=== PATIENT | male | born 1980 | race Caucasian/White ===

== ENCOUNTER 2024-02-17 14:10 | Emergency (ER) | payer OTHER, SELFPAY ==
--- NOTE | 2024-02-17 14:32 | MHC.EDTECH ---
CALLED ME OFFICE PER DR VILLASEÑOR. SPOKE TO CLIFF URENA 9391.
--- NOTE | 2024-02-17 14:35 | ED_ITS ---
HPI - CPR General Chief Complaint: Cardiac Arrest/CPR Stated Complaint: CA Time Seen by Provider: 02/17/24 14:23 Source: EMS Mode of arrival: EMS Limitations: other ( cardiac arrest) History of Present Illness ED Provider: DR. Santos HPI narrative: 43-year-old male not well known to our facility came in by ambulance after witnessed arrest. on EMS arrival patient was apneic, no pulse, fine V-tach that patient received 1 time D fibrillation, patient also received 1 mg epinephrine x6 at the field and CPR was started and Jimmy's airway was established and patient was transferred to our ED. On arrival patient is unresponsive, CPR in progress, initial rhythm at the ED asystole with no pulse, patient was intubated using glide scope, CPR was in progress, patient received 1 mg of epinephrine x4, bicarb 2 amp, BS was 153. was announced at 14:30. No family or contacts at this point, patient has no records in our hospital. accepted by [facility] . Related Data Allergies Allergy/AdvReac Type Severity Reaction Status Date / Time Unable to Assess Allergy Verified 02/17/24 14:42 Review of Systems Review of Systems: all other systems are reviewed and are negative Constitutional: Reports as per HPI and Reports no additional constitutional complaints Eyes: Reports as per HPI and Reports no additional eye complaints Reports system reviewed and no additional complaints, except as documented Cardiovascular: Reports as per HPI and Reports no additional cardiovascular complaints Respiratory: Reports as per HPI and Reports no additional respiratory complaints Gastrointestinal: Reports as per HPI and Reports no additional gastrointestinal complaints Genitourinary: Reports no additional female genitourinary complaints Musculoskeletal: Reports no additional musculoskeletal complaints Skin/Breast: Reports system reviewed and no additional complaints, except as docu Psychiatric: Reports no additional psychiatric complaints Endocrine: Reports no additional endocrine complaints Hematologic/Lymphatic: Reports no additional hematologic/lymphatic complaints Allergic/Immunologic: Reports no additional allergic/immunologic complaints Reports system reviewed and no additional complaints, except as documented and Reports Abnormal speech present [facility] Social History Social History Advance Directives: No Advance Directives Information Provided: No Physical Exam Vital Signs: Vital Signs: BMI result Body Mass Index 36.0 pulse 0, respiratory rate 0, BP unobtainable. general: Unresponsive. HEENT: pupil is 3 mm fixed and dilated, no eye movement, No facial trauma, no neck trauma. Chest: No air movement, patient is apneic. Heart: No heart sounds. Abdomen: Soft, no distention, no evidence of trauma. Extremity: No trauma, no deformity. Neuro exam: Patient is unresponsive GCS of 3. Course Reevaluation(s) Reevaluation #1: Cardiac arrest. Unsuccessful resuscitation. Case was discussed with me and was accepted with by Sophia Mcdermott Time: 14:58 Medical Decision Making Differential Diagnosis Differential Diagnoses: The differential diagnosis associated with the presentation includes ( cardiac arrest, overdose.) Admission/Observation Consideration of admission/observation: Escalation of care including admission/observation considered Discharge Plan Discharge Clinical Impression: Cardiac arrest Patient Disposition: Date/Time: 02/17/24 14:30
[2024-02-17 14:42] VITALS: BMI 36.0
--- OUTSIDE RECORDS SUMMARY | 2024-02-17 14:55 | XMS_ITS | Continuity of Care Document ---
Author Organization [facility] Address [address] [place] [address] [address] [place] [address]- Care Team Providers Care Software Sales Manager Name Role Phone Marvin FLORES, Andrez Lawton Primary Care Physician Encounter [facility] Date(s): 06/08/19 - 10/06/[address] [place] [address]- [facility] Attending Physician: Cheikh FLORES, Cheryle Lawton Allergies, Adverse Reactions, Alerts Substance Reaction Severity Status penicillin Active Immunizations Not Given Vaccine Date Status Refusal Reason pneumococcal 23-valent vaccine 04/07/19 Not Given Parent Or Guardian Refuses Social History Social History Type Response Smoking Status Never (less than 100 in lifetime) entered on: 05/07/19 Sex
--- OUTSIDE RECORDS SUMMARY | 2024-02-17 14:55 | XMS_ITS | Continuity of Care Document ---
Author Organization [facility] ter Address [address] [place] [address]- Care Team Providers Care Mirror Inspector Name Role Phone Andrez Wong MD Primary Care Physician [phone] [place] [facility] [id number] Date(s): 10/10/22 - 10/10/[address] [address]- Discharge Disposition: A-D/C Home Attending Physician: Eryn Mccoy DO Admitting Physician: Eryn Mccoy DO Referring Physician: Not on Staff, Referring MD Allergies, Adverse Reactions, Alerts Substance Reaction Severity Status penicillin Active Immunizations Not Given Vaccine Date Status Refusal Reason pneumococcal 23-valent vaccine 04/07/19 Not Given Parent Or Guardian Refuses Medications cyclobenzaprine 5 mg oral tablet 1 tablet = 5 mg, By Mouth, 3 times a day, for 5 days, # 15 tablet, 0 Refills, Acute 10/15/22 10:17:00 EDT, 10/10/22 10:17:00 EDT, [id number], Partial fill upon patient request if theprescription is for a schedule II opioid drug., 176... Start Date: 10/10/22 Stop Date: 10/15/22 Status: Ordered ibuprofen 600 mg oral tablet 600 mg, 1, tablet, By Mouth, 4 times a day, PRN, for 5 days, # 20 tablet, Refills 0, Tot. Refills 0, Acute 10/15/22 10:17:00 EDT, for pain, 10/10/22 10:17:00 EDT, Route to Pharmacy Electronically, [id number], Partial fill upon patient... Start Date: 10/10/22 Stop Date: 10/15/22 Status: Ordered lidocaine 5% topical film 1 patch, Topically, Daily, PRN Pain , Moderate, # 5 patch, 0 Refills, Maintenance, 10/10/22 10:17:00 EDT, [facility] #[id number], Partial fill upon patient request if the prescription is for a schedule II opioid drug., 1 patch Topically Daily,x5... Start Date: 10/10/22 Stop Date: 10/15/22 Status: Ordered oxyCODONE 5 mg oral tablet 5 mg, Tablet, By Mouth, Every 6 hours, PRN for Pain , Severe, STAT, 10/10/22 6:19:00 EDT Start Date: 10/10/22 Stop Date: 10/10/22 Status: Discontinued Problem List Condition Confirmation Course Effective Dates Status Health St atus Informant Severe obesity Confirmed Active Results Radiology Reports * Exam Date Time Procedure Performing Provider Status 10/10/22 6:37 AM XR Hip w/Pelvis 2-3 View Left Eleazar Ariza; Auth (Verified) Notes: (XR Hip w/Pelvis 2-3 View Left) Reason For Exam: Pain RESULT: XR Hip w/Pelvis 2-3 View Left XR Hip w/Pelvis 2-3 View Left Hx of Present Illness: pt complains of left hip pain for 6 weeks, was seen agt UC and given pain meds but pain worse; Reason: Pain; Clinical Question(s): Other: COMPARISON: No relevant FINDINGS: There is no fracture or dislocation. The femoral heads are normally aligned with the acetabula. Thesoft tissues are unremarkable. IMPRESSION: There is no acute osseous abnormality. WSN: [id number] Ordering Physician: Rebeca Palacios Dictated By: Isela Espinoza MD Dictated Date/Time: 10/10/22 8:56 am Reviewed By: Isela Espinoza MD Signed By: Isela Espinoza MD Signed Date/Time: 10/10/22 8:56 am Transcribed By: GEORGIE Transcribed Date/Time: 10/10/22 8:55 am * Exam Date Time Procedure Performing Provider Status 10/10/22 7:[address] Lumbar Spine W/O Contrast Richard Youngblood; Auth (Verified) Notes: (CT Lumbar Spine W/O Contrast) Reason For Exam: Spine fracture, lumbar;Other: RESULT: CT Lumbar Spine W/O Contrast CT Lumbar Spine W/O Contrast Hx of Present Illness: pt complains of left hip pain for 6 weeks, was seen agt and given pain meds but pain worse; Reason: Other:; Spine fracture, lumbar; Clinical Question(s): Fracture Dislocation; Severe radicular like pain in the hip; Order Comment: CLINICAL QUESTION: Fracture/Dislocation TECHNIQUE: Thin section axial images were acquired through the lumbar spine. Bone and soft tissue algorithms were reconstructed along with coronal and sagittal reformats. Weight-based protocol using automatic tube modulation was used to optimize exposure parameters. CTDIvol Body: 44.70 mGy, DLP Body: 1254 mGy*cm. COMPARISON: None FINDINGS: Grooming Assistant View Findings, Lines and Tubes: None. Spine: No fractures or bone lesion. Mild endplate and intervertebral disc degenerative changes with minimal posterior disc bulge at L2-L3. Soft tissues: No acute abnormality in the paravertebral soft tissues. Visualized aorta and kidneys appear unremarkable. IMPRESSION: No acute fracture of the lumbar spine. WSN: [id number] Ordering Physician: Rebeca Palacios Dictated By: Nargis Hammond MD Dictated Date/Time: 10/10/22 9:00 am Reviewed By: Nargis Hammond MD Signed By: Nargis Hammond MD Signed Date/Time: 10/10/22 9:00 am Transcribed By: GEORGIE Transcribed Date/Time: 10/10/22 8:38 am * Exam Date Time Procedure Performing Provider Status 10/10/22 7:[address] Ext Lower W/O Contrast Left Lolly Youngblood; Auth (Verified) Notes: (CT Ext Lower W/O Contrast Left) Reason For Exam: Fracture, hip;Fracture RESULT: CT Ext Lower W/O Contrast Left CT Ext Lower W/O Contrast Left Hx of Present Illness: Worsening left hip pain for the past 6 weeks, was seen at and given pain meds but pain worse; Reason: Fracture; Clinical Question(s): Hip; Groin and hip pain, difficulty weightbearing. TECHNIQUE: Helical CT without contrast formatted in 3 planes. Weight-based protocol using automatictube modulation was used to optimize exposure parameters. CTDIvol Body: 18.10 mGy, DLP Body: 513 mGy*cm. COMPARISONS: Plain films performed earlier the same day. FINDINGS: Bones and joints: No fracture or dislocation is present. No erosions, productive changes or abnormal calcifications are noted. Aspherical bilateral femoral heads with decreased offset of the femoral head neck junction and lateral osseous prominence which can lead to impingement. Mild joint space narrowing. Soft Tissues: No joint effusion. Small left inguinal lymph nodes are nonspecific. IMPRESSION: No acute abnormalities. WSN: [id number] Ordering Physician: Rebeca Palacios Dictated By: Scott Bangura MD Dictated Date/Time: 10/10/22 8:25 am Reviewed By: Scott Bangura MD Signed By: Scott Bangura MD Signed Date/Time: 10/10/22 8:25 am Transcribed By: GEORGIE Transcribed Date/Time: 10/10/22 8:20 am Vital Signs Most recent to oldest [Reference Range]: 1 2 3 Height 176 cm (10/10/22 5:05 AM) Weight 118 kg (10/10/22 5:05 AM) Oxygen Saturation [94-100 %] 97 % (10/10/22 7:18 AM) 97 % (10/10/22 5:55 AM) 100 % (10/10/22 5:05 AM) Pulse Rate [55-90 bpm] 89 bpm (10/10/22 7:18 AM) 81 bpm (10/10/22 5:55 AM) 88 bpm (10/10/22 5:05 AM) Blood Pressure [90-138/55-84 mm Hg] 134/66mm Hg (10/10/22 7:18 AM) 121/70mm Hg (10/10/22 5:55 AM) 151/110mm Hg *H* (10/10/22 5:05 AM) Respiratory Rate [16-30 br/min] 18 br/min (10/10/22 7:18 AM) 18 br/min (10/10/22 6:45 AM) 16 br/min (10/10/22 5:55 AM) Temperature [96.8-100.4 DegF] 98.8 DegF (10/10/22 7:18 AM) 97.4 DegF (10/10/22 5:55 AM) 97.7 DegF (10/10/22 5:05 AM) Mode of Delivery (Oxygen) Room air (10/10/22 7:18 AM) Room air (10/10/22 5:55 AM) Room air (10/10/22 5:05 AM) Blood pressure sites Arm, right (10/10/22 7:18 AM) Arm, left (10/10/22 5:55 AM) Arm, left (10/10/22 5:05 AM) Temperature Route Oral (10/10/22 7:18 AM) Oral (10/10/22 5:55 AM) Oral (10/10/22 5:05 AM) Dry Weight 118 kg (10/10/22 5:05 AM) Social History Social History Type Response Smoking Status Never (less than 100 in lifetime) entered on: 05/07/19 Sex Note * Phyllis Gomez: PERFORM Event Display: Patient Education Leaflets Authored Date: Multiple Documents ?? 250 ?? This page is FOR PRESCRIBERS Only, ? DO NOT GIVE TO THE PATIENT? Physical Therapy Referral Program for Management of Pain In an effort to reduce narcotic use, some of our ED patients will benefit from a direct referral torehab care.?? [facility] will see INSURED patients and has a system in place to avoid sending follow up paperwork to the ED prescribers.? Note: Non[facility] therapy services will probably NOT be able to handle ED generated PT referrals. ?? Patients should still follow up with their PCP as soon as possible regarding their ongoing care. Inform patients that [facility] will discuss insurance when they call.?? Some insurance plans limit the amount of PT a patient can receive each year. ?? Complete the FIRST PAGE of the patient???s referral sheet. [place] or write in diagnosis Modify the timing for treatment, if needed List any major precautions (i.e.?? Non-weight bearing limb), if needed Sign, date and print your name at the bottom ? Physical Therapy Referral Form Patient Instructions: You are being referred to physical therapy.?? This form is your referral and MUST be brought to your appointment. You need to call to set up your appointment. ?? This form can be used at any [facility] location.?? A list of locations is attached.?? 1)?? DIAGNOSIS/ICD-10 (chitimacha one) Cervicalgia: M54.2 ? Strain of muscle, fascia and tendon at neck level: S16.1XXD? Radiculopathy, cervical region: M54.12? Mid back pain: M54.9 ? Low back pain:?? M54.5 Strain of muscle, fascia and tendon of lower back: S39.012D Radiculopathy, lumbosacral region: M54.17 Other:? 2)? [? ]? Evaluate and Treat 2 Times/Week for 4 weeks as needed [? ]?Other: 3)? [? ]? No Precautions [? ]?Precautions: ?? I hereby certify these services as medically necessary for the patient???s plan of care. Physician???s Signature Date Physician Name (printed)? Locations You can call any location below.?? Tell them you were seen in a [facility] and have a referral form.?? Remember to bring your referral form with you to the appointment. [place]ASH[place]DA [place] [address], [address]? [address] Phone: [phone]? [place] [address]? [place] [address]? [address] ? [place] [address]? [place] [address]? [address] ? [place] [address]? [place] [address]? [address]? [facility] [place] ? [address] ? * Phyllis Gomez: PERFORM Event Display: Patient Education Leaflets Authored Date: Multiple Documents ?? [id number] Sciatica Sciatica is a condition that causes pain in the low back that spreads down into the buttock, hip, and leg. Sometimes the leg pain can happen without any back pain. Sciatica happens when a spinal nerve is irritated or has pressure put on it as it comes out of the spinal canal in the low back. This most often happens when a bulge or rupture of a nearby spinal disk presses on the nerve. Sciatica canalso be caused by a narrowing of the spinal canal (spinal stenosis) or spasm of the muscle in the buttocks that the sciatic nerve passes through (piriformis muscle). Sciatica may also be called lumbar radiculopathy. Sciatica may start after a sudden twisting or bending force, such as in a car accident. Or it can happen after a simple awkward movement. In either case, muscle spasm often also happens. Muscle spasmmakes the pain worse. A healthcare provider makes a diagnosis of sciatica from your symptoms and a physical exam. Unless you had an injury from a car accident or fall, you usually won???t have X-rays taken at this time. This is because the nerves and disks in your back can???t be seen on an X-ray. If the provider suspects a compressed nerve based on your history or exam, you'll need to schedule an MRI scan. Nerve conductions studies and electromyography are nerve tests that can also help find the cause of nerve pain. Signs of a compressed nerve include loss of strength or reflexes in a leg. Most sciatica gets better with medicine, exercise, and physical therapy. If your symptoms continue after medical treatment, you may need surgery or shots (injections) to your low back. This will depend on how severe your symptoms are. Home care Follow these tips when caring for yourself at home: ??? As soon as possible, start sitting up or walking. This will help you prevent problems that come from staying in bed for long periods. ??? When in bed, try to find a position that is comfortable. A firm mattress is best. Try lying flat on your back with pillows under your knees. You can also try lying on your side with your knees bent up toward your chest and a pillow between your knees. ??? Don't sit for long periods. This puts more stresson your low back than standing or walking. ??? Use heat from a hot shower, hot bath, or heating padto help ease pain. Massage can also help. You can also try using an ice pack. You can make your ownice pack by putting ice cubes in a plastic bag that seals at the top. Wrap the bag in a thin towel.Try both heat and cold to see which works best. Use the method that feels best for 20 minutes several times a day. ??? You may use acetaminophen or ibuprofen to ease pain, unless another pain medicine was prescribed. Note: If you have chronic liver or kidney disease, talk with your healthcare provider before taking these medicines. Also, talk with your provider if you???ve had a stomach ulcer or digestive tract bleeding. ??? Use safe lifting methods. Don???t lift anything heavier than advised until all of the pain is gone. ?? Follow-up care Follow up with your healthcare provider, or as advised. You may need physical therapy or more tests. If X-rays were taken, a radiologist will look at them. You'll be told of any new findings that may affect your care. ?? When to get medical care Call your healthcare provider right away??if any of these occur: ??? Pain gets worse even after taking prescribed medicine ??? Weakness or numbness in 1 or both legs or hips ??? Numbness in your groin or genital area ??? You can???t control your bowel or bladder ??? Fever 100.4??F (38??C) or higher, or as advised by your provider ??? Redness or swelling over your back or spine? Last Reviewed Date: 2021 ?? [id number] [employer]. All rights reserved. This information is not intended as a substitute for professional medical care. Always follow your healthcare professional's instructions. ?? CT Lower extremity WO contrast * [facility] , CIS S: TRANSCRIBE Staehle MD, Scott H: VERIFY Event Display: Result: Authored Date: [id number] CT Ext Lower W/O Contrast Left Hx of Present Illness: Worsening left hip pain for the past 6 weeks, was seen at and given pain meds but pain worse; Reason: Fracture; Clinical Question(s): Hip; Groin and hip pain, difficulty weightbearing. TECHNIQUE: Helical CT without contrast formatted in 3 planes. Weight-based protocol using automatictube modulation was used to optimize exposure parameters. CTDIvol Body: 18.10 mGy, DLP Body: 513 mGy*cm. COMPARISONS: Plain films performed earlier the same day. FINDINGS: Bones and joints: No fracture or dislocation is present. No erosions, productive changes or abnormal calcifications are noted. Aspherical bilateral femoral heads with decreased offset of the femoral head neck junction and lateral osseous prominence which can lead to impingement. Mild joint space narrowing. Soft Tissues: No joint effusion. Small left inguinal lymph nodes are nonspecific. IMPRESSION: No acute abnormalities. WSN: [id number] Ordering Physician: Rebeca Palacios Dictated By: Scott Bangura MD Dictated Date/Time: 10/10/22 8:25 am Reviewed By: Scott Bangura MD Signed By: Scott Bangura MD Signed Date/Time: 10/10/22 8:25 am Transcribed By: GEORGIE Transcribed Date/Time: 10/10/22 8:20 am XR Pelvis and Hip - left Views * DALLIN Mcclendon S: TRANSCIsela Sandoval MD: VERIFY Event Display: Result: Authored Date: [id number] XR Hip w/Pelvis 2-3 View Left Hx of Present Illness: pt complains of left hip pain for 6 weeks, was seen agt and given pain meds but pain worse; Reason: Pain; Clinical Question(s): Other: COMPARISON: No relevant FINDINGS: There is no fracture or dislocation. The femoral heads are normally aligned with the acetabula. Thesoft tissues are unremarkable. IMPRESSION: There is no acute osseous abnormality. WSN: [id number] Ordering Physician: Rebeca Palacios Dictated By: Isela Espinoza MD Dictated Date/Time: 10/10/22 8:56 am Reviewed By: Isela Espinoza MD Signed By: Isela Espinoza MD Signed Date/Time: 10/10/22 8:56 am Transcribed By: GEORGIE Transcribed Date/Time: 10/10/22 8:[address] Lumbar spine WO contrast * [facility] , CIS S: TRANSCRIBE Nargis Hammond MD: VERIFY Event Display: Result: Authored Date: [id number] CT Lumbar Spine W/O Contrast Hx of Present Illness: pt complains of left hip pain for 6 weeks, was seen agt and given pain meds but pain worse; Reason: Other:; Spine fracture, lumbar; Clinical Question(s): Fracture Dislocation; Severe radicular like pain in the hip; Order Comment: CLINICAL QUESTION: Fracture/Dislocation TECHNIQUE: Thin section axial images were acquired through the lumbar spine. Bone and soft tissue algorithms were reconstructed along with coronal and sagittal reformats. Weight-based protocol using automatic tube modulation was used to optimize exposure parameters. CTDIvol Body: 44.70 mGy, DLP Body: 1254 mGy*cm. COMPARISON: None FINDINGS: Grooming Assistant View Findings, Lines and Tubes: None. Spine: No fractures or bone lesion. Mild endplate and intervertebral disc degenerative changes with minimal posterior disc bulge at L2-L3. Soft tissues: No acute abnormality in the paravertebral soft tissues. Visualized aorta and kidneys appear unremarkable. IMPRESSION: No acute fracture of the lumbar spine. WSN: [id number] Ordering Physician: Rebeca Palacios Dictated By: Nargis Hammond MD Dictated Date/Time: 10/10/22 9:00 am Reviewed By: Nargis Hammond MD Signed By: Nargis Hammond MD Signed Date/Time: 10/10/22 9:00 am Transcribed By: GEORGIE Transcribed Date/Time: 10/10/22 8:38 am Patient Care team information Care Team Personnel Name: Nora Brunson RN Position: S RN Member Role: Primary Care Nurse Name: Radha Damon RN Position: S RN Member Role: Primary Care Nurse Name: Claritza Peter RN Position: S RN Member Role: Primary Care Nurse Name: Andrez Wong MD Position: [facility] Physician (General Medicine) Member Role: PCP Address: Address: [address] [place] [address] [facility], [place] [address]- Name: Phyllis Gomez Position: [facility] Associate Professional Member Role: ED Physician Caul Fat Puller Address: Address: [address] [place] [address]- Name: Lorenza Gonzales RN Position: [facility] ED RN W/OE and Tasks Member Role: Patient Care Provider Name: Maryanne Valero Position: [facility] ED TA [facility] Name: Sterling Osborn LPN Position: [facility] ED RN W/OE and Tasks Member Role: Patient Care Provider Name: Eryn Mccoy DO Position: [facility] Resident Member Role: Admitting Physician Address: Address: [address] [place] [address]- Care Team Related Persons Name: ZAFAR TELLO Address: home [address] [place] [address] Name: YELITZA GREER Address: [place] [address]
--- OUTSIDE RECORDS SUMMARY | 2024-02-17 14:55 | XMS_ITS | Continuity of Care Document ---
Author Organization [facility] Address [address] [place] [address]- Care Team Providers Care Fireworks Assembler Name Role Phone Andrez Wong MD Primary Care Physician [phone] Encounter [facility] Date(s): 01/09/24 - 01/09/[address] [address]- Encounter Diagnosis Abdominal pain, chronic, generalized(Final) - 01/09/24 Diverticulosis(Final) - 01/09/24 Discharge Disposition: A-D/C Home Attending Physician: Daryn Tenorio MD Admitting Physician: Daryn Tenorio MD Referring Physician: Not on Staff, Referring MD Allergies, Adverse Reactions, Alerts Substance Reaction Severity Status penicillin Active Medications ciprofloxacin 500 mg oral tablet 1 tablet = 500 mg, By Mouth, Every 8 hours, for 7 days, # 21 tablet, 0 Refills, Acute 01/16/24 18:01:00 EDT, 01/09/24 18:01:00 EDT, Tablet, [facility] #[id number], Partial fill upon patient request if the prescription is for a schedule II opioid... Start Date: 01/09/24 Stop Date: 01/16/24 Status: Ordered lidocaine 5% topical film 1 patch, Topically, Daily, PRN Pain , Moderate, # 5 patch, 0 Refills, Maintenance, 10/10/22 10:17:00 EDT, [facility] #[id number], Partial fill upon patient request if the prescription is for a schedule II opioid drug., 1 patch Topically Daily,x5... Start Date: 10/10/22 Stop Date: 10/15/22 Status: Ordered metroNIDAZOLE 500 mg oral tablet 1 tablet = 500 mg, By Mouth, Every 8 hours, for 7 days, # 21 tablet, 0 Refills, Acute 01/16/24 18:01:00 EDT, 01/09/24 18:01:00 EDT, Tablet, [facility] #[id number], Partial fill upon patient request if the prescription is for a schedule II opioid... Start Date: 01/09/24 Stop Date: 01/16/24 Status: Ordered Problem List Condition Confirmation Course Effective Dates Status Health St atus Informant Obese class II Confirmed Active Results Radiology Reports * Exam Date Time Procedure Performing Provider Status 01/09/24 4:[address] Abd/Pelvis W/ IV Contrast Only Formary weeks Leonard; Auth (Verified) Notes: (CT Abd/Pelvis W/ IV Contrast Only) Reason For Exam: 4 weeks lower abd pain/pressure worse x 1 week. HX Divertic;Pain RESULT: CT Abd/Pelvis W/ IV Contrast Only CT Abd/Pelvis W/ IV Contrast Only Hx of Present Illness: Pt has had a month of lower abd pain. Pt denies NVD. Pt has hx of diverticulitis; Reason: Pain; 4 weeks lower abd pain pressure worse x 1 week. HX Divertic; Clinical Question(s): Diverticulitis TECHNIQUE: Spiral CT through the abdomen and pelvis with IV contrast formatted in 3 planes. 100 cc of Omnipaque 300 was administered intravenously. This study was performed without oral contrast. Weight-based protocol using automatic tube modulation was used to optimize exposure parameters. COMPARISON: CT abdomen and pelvis 04/12/2019. FINDINGS: Cat Hooker View Findings, Lines and Tubes: None. Visualized Chest: Lung bases are clear. No pleural effusion. The heart is normal in size. No pericardial effusion. Diaphragm: Normal. Liver: Normal. No suspicious lesion. Gallbladder: Cholelithiasis. No evidence of acute cholecystitis. Bile ducts: No biliary ductal dilation. Spleen: Normal. Pancreas: Normal. Adrenal glands: Normal. Kidneys and ureters: No hydronephrosis, stones, or suspicious masses. Bladder: Normal. Reproductive organs: Unremarkable. Stomach, small bowel, and large bowel: Stomach, small bowel Normal in caliber. No evidence of bowel obstruction. No acute inflammatory process of the bowel. Multifocal diverticula of the distal descending and sigmoid colon without diverticulitis. Appendix: No evidence of appendicitis. Peritoneum and retroperitoneum: No ascites or pneumoperitoneum. No omental or mesenteric lesions. Lymph nodes: No enlarged lymph nodes. There are a few subcentimeter retroperitoneal periaortic lymph nodes which measure up to 9 mm directly (70/2), unchanged from 04/12/2019, most likely reactive. Blood vessels: Normal. No aneurysm. No evidence of venous thrombosis. Abdominal and pelvic wall: Unremarkable. Bones: No acute abnormality. IMPRESSION: 1. No acute process in the abdomen or pelvis. 2. Diverticulosis of the descending and sigmoid colon without evidence of acute diverticulitis. 3. Cholelithiasis. WSN: [id number] Ordering Physician: Yomaira Rosario Dictated By: Zackary Eric MD Dictated Date/Time: 01/09/24 5:06 pm Reviewed By: Zackary Eric MD Signed By: Zackary Eric MD Signed Date/Time: 01/09/24 5:06 pm Transcribed By: GEORGIE Transcribed Date/Time: 01/09/24 4:57 pm Vital Signs Most recent to oldest [Reference Range]: 1 2 3 Height 175 cm (01/09/24:13 PM) 175 cm (01/09/24 12:37 PM) Weight 119.4 kg (01/09/24: PM) 119.4 kg (01/09/24 12:37 PM) Oxygen Saturation [94-100 %] 97 % (01/09/24: PM) 95 % (01/09/24 12:37 PM) 97 % (01/09/24 12:36 PM) Pulse Rate [55-90 bpm] 71 bpm (01/09/24:13 PM) 78 bpm (01/09/24 12:37 PM) 92 bpm *H* (01/09/24 12:36 PM) Body Mass Index [18.5-24.99 kg/m2] 38.99 kg/m2 *>HHI* (01/09/24:13 PM) Blood Pressure [90-138/55-84 mm Hg] 128/84mm Hg (01/09/24: PM) 125/81mm Hg (01/09/24 12:37 PM) Respiratory Rate [16-30 br/min] 18 br/min (01/09/24:13 PM) 20 br/min (01/09/24 12:37 PM) Temperature [96.8-100.4 DegF] 97.3 DegF (6/11/24 12:37 PM) Mode of Delivery (Oxygen) Room air (01/09/24 5:13 PM) Blood pressure sites Arm, left (01/09/24 5:13 PM) Dry Weight 119.4 kg (01/09/24 5:13 PM) 119.4 kg (01/09/24 12:37 PM) Weight Obtained Via Standing scale (01/09/24 12:37 PM) Dry Weight Obtained Via Standing scale (01/09/24 12:37 PM) Social History Social History Type Response Smoking Status Never (less than 100 in lifetime) entered on: 05/07/19 Sex Note * Marlene INFANTRY OPERATIONS SPECIALIST, Yomaira WH: PERFORM Event Display: Patient Education Leaflets Authored Date: [id number] Diverticulosis ?? [id number] Diverticulosis Diverticulosis??means that small pouches have formed in the wall of??your??large intestine (colon).Most often, this problem causes no symptoms and is common as people age. But the pouches in the colon are at risk of becoming infected. When this happens, the condition is called diverticulitis. Although most people with diverticulosis never develop diverticulitis, it's still not uncommon. Rectal bl eeding can also occur and in less common situations, a type of colon inflammation called colitis. Most people don't??have symptoms. But some people with diverticulosis may??have: ??? Belly (abdominal) cramps and pain ??? Bloating ??? Constipation ??? Change in bowel habits Causes The exact cause of diverticulosis (and diverticulitis) has not been proved, but??a few things are linked with the condition: ??? Low-fiber diet. But some experts don't agree about this. ??? Constipation ??? Lack of exercise Your healthcare provider will talk with you about how to manage your condition. Diet changes may doug that you need to help control diverticulosis and prevent its becoming diverticulitis. If you develop diverticulitis, you will likely need??other treatments. ?? Home care You may be told to take fiber supplements daily. Fiber adds bulk to the stool so that it passes through the colon more easily. Stool softeners may also be recommended. You may also be given medicinesfor pain relief. Be sure to take all medicines as directed. In the past, people were told to not have corn, nuts, or seeds. You no longer need to do this. Follow these guidelines when caring for yourself at home: ??? Eat unprocessed foods that are high in fiber. Whole grains, fruits, and vegetables are good choices. ??? Drink 6 to 8 glasses of water every day unless your healthcare provider has you limit how much??fluid you should have. ??? Watch forchanges in your bowel movements. Tell your provider if you notice any changes. ??? Begin an exercise program. Ask your provider how to get started. Generally, walking is the best. ??? Get plenty of rest and sleep. ?? Follow-up care Follow up with your healthcare provider, or??as advised. You may need regular visits to check on your health. Sometimes you may need special procedures such as colonoscopy after an episode of diverticulitis or blooding. Be sure to keep all your appointments. If a stool sample was taken, or cultures were done, you'll be told if they are positive, or if yourtreatment needs to be changed. You can call as directed for the results. If X-rays were done,??you'll be told of any new findings that may affect your care. If antibiotics were prescribed, be sure to finish them all. ?? When to seek medical advice Call your healthcare provider right away??if any of these occur: ??? Fever of 100.4??F (38??C) or higher , or as directed by your healthcare provider ??? Severe cramps in the lower left side of the belly (abdomen) or pain that's getting??worse ??? Tenderness in the lower left side of the abdomen orpain throughout the abdomen that gets worse ??? Diarrhea or constipation that doesn't get better within 24 hours ??? Nausea and vomiting ??? Slight bleeding from the rectum ?? Call 911 Call 911 if any of the following occur: ??? Large amount of bleeding from the rectum ??? Trouble breathing ??? Confusion ??? Very drowsy or trouble awakening ??? Fainting or loss of consciousness ???Rapid heart rate ??? Chest pain ?? Last Reviewed Date: 2021 ?? [id number] [employer]. All rights reserved. This information is not intended as a substitute for professional medical care. Always follow your healthcare professional's instructions. ?? Patient Care team information Care Team Personnel Name: Nora Brunson RN Position: [facility] RN Member Role: Primary Care Nurse Name: Radha Damon RN Position: S RN Member Role: Primary Care Nurse Name: Claritza Peter RN Position: [facility] RN Member Role: Primary Care Nurse Name: Andrez Wong MD Position: [facility] Physician - Primary Care Member Role: PCP Address: Address: [address] [place] [address], [place] [address]- Care Team Related Persons Name: ZAFAR TELLO Address: home [address] [place] [id number] Name: YELITZA GREER Address: [place] [address]
--- OUTSIDE RECORDS SUMMARY | 2024-02-17 14:55 | XMS_ITS | Continuity of Care Document ---
Author Organization [facility] Address Unknown Care Team Providers Care Info Specialist Name Role Phone Andrez Wong MD Primary Care Physician [place] [facility] - 09/19/21 [facility] Allergies, Adverse Reactions, Alerts Substance Reaction Severity Status penicillin Active Immunizations Not Given Vaccine Date Status Refusal Reason pneumococcal 23-valent vaccine 04/07/19 Not Given Parent Or Guardian Refuses Problem List Condition Effective Dates Status Health Status Inform ant Severe obesity(Confirmed) Active Social History Social History Type Response Smoking Status Never (less than 100 in lifetime) entered on: 05/07/19 Sex
--- OUTSIDE RECORDS SUMMARY | 2024-02-17 14:55 | XMS_ITS | Continuity of Care Document ---
Author Organization [facility] Address [address] [place] [address] [address] [place] [address]- Care Team Providers Care Recycling Or Rubbish Collector Name Role Phone Marvin FLORES, Andrez Lawton Primary Care Physician Encounter [facility] [place] Date(s): 09/06/19 - 09/16/[address] [place] [address]- [facility] Attending Physician: Jennifer Esqueda Admitting Physician: Jennifer Esqueda Referring Physician: AdmtrJennifer Allergies, Adverse Reactions, Alerts Substance Reaction Severity Status penicillin Active Immunizations Not Given Vaccine Date Status Refusal Reason pneumococcal 23-valent vaccine 04/07/19 Not Given Parent Or Guardian Refuses Social History Social History Type Response Smoking Status Never (less than 100 in lifetime) entered on: 05/07/19 Sex
--- OUTSIDE RECORDS SUMMARY | 2024-02-17 14:55 | XMS_ITS | Continuity of Care Document ---
Author Organization [facility] Address [address] [place] [id number]- Care Team Providers Care Solar Electric Practitioner Name Role Phone Andrez Wong MD Primary Care Physician Encounter [facility] Date(s): 07/29/19 - 07/29/[address] [address]- [facility] Attending Physician: Andrez Wong MD Allergies, Adverse Reactions, Alerts Substance Reaction Severity Status penicillin Active Immunizations Not Given Vaccine Date Status Refusal Reason pneumococcal 23-valent vaccine 04/07/19 Not Given Parent Or Guardian Refuses Social History Social History Type Response Smoking Status Never (less than 100 in lifetime) entered on: 05/07/19 Sex
--- OUTSIDE RECORDS SUMMARY | 2024-02-17 14:55 | XMS_ITS | Continuity of Care Document ---
Author Organization [facility] Address Unknown Care Team Providers Care Rehabilitation Clerk Name Role Phone Andrez Wong MD Primary Care Physician [phone] Encounter [facility] [place] Date(s): 09/03/21 - 10/03/21 [facility] Attending Physician: Jennifer Esqueda Admitting Physician: Jennifer Esqueda Referring Physician: Jennifer Esqueda Allergies, Adverse Reactions, Alerts Substance Reaction Severity [...]
--- OUTSIDE RECORDS SUMMARY | 2024-02-17 14:55 | XMS_ITS | Continuity of Care Document ---
Author Organization [facility] Address Unknown Care Team Providers Care Regional Program Manager Name Role Phone Andrez Wong MD Primary Care Physician [phone] Encounter [facility] [place] Date(s): 09/03/21 - 09/10/21 [facility] Attending Physician: Corey Spain MD Referring Physician: Andrez Wong MD Allergies, Adverse Reactions, Alerts Substance Reaction Severity Status penicillin Active Immunizations Not Given Vaccine Date Status Refusal Reason pneumococcal 23-valent vaccine 04/07/19 Not Given Parent Or Guardian Refuses Problem List Condition Effective Dates Status Health Status Inform ant Severe obesity(Confirmed) Active Vital Signs Most recent to oldest [Reference Range]: 1 Height 175 cm (09/03/21 1:41 PM) Weight 123.2 kg (09/03/21 1:41 PM) Pulse Rate [55-90 bpm] 81 bpm (09/03/21 1:41 PM) Body Mass Index [18.5-24.99] 40.23 *>HHI* (09/03/21 1:41 PM) Blood Pressure [90-138/55-84 mm Hg] 146/ 81mm Hg *H* (09/03/21 1:41 PM) Respiratory Rate [16-30 br/min] 16 br/mi n (09/03/21 1:41 PM) Temperature [96.8-100.4 DegF] 98.9 DegF (09/03/21 1:41 PM) Blood pressure sites Arm, right (09/03/21 1:41 PM) Temperature Route Temporal (09/03/21 1:41 PM) Weight Obtained Via Standing scale (09/03/21 1:41 PM) Social History Social History Type Response Smoking Status Never (less than 100 in lifetime) entered on: 05/07/19 Sex
--- NOTE | 2024-02-17 15:21 | PC.NURSE ---
Addendum entered by Evelia Teresa 02/17/24 15:24: Original Note: organ bank called [phone], accepted case at this time
--- NOTE | 2024-02-17 17:27 | PC.NURSE ---
call placed to obdulio PATRICIA in order to obtain next of kin information. received call back w/ no next of kin information available as they were unable to obtain. [facility] that [facility] perry who also had no information
== END 2024-02-17 17:31 | disposition expired ==
PROVIDERS: Emergency Provider Emergency Medicine
DX: I46.9 Cardiac arrest, cause unspecified (principal)
CPT/HCPCS: 99282; 99284; J0171